=== PATIENT | female | born 1985 | race Caucasian/White ===

== ENCOUNTER 2016-07-12 17:01 | Emergency (ER) | payer BC, OTHER ==
[~2016-07-12] VITALS: Ht 149.9 cm; Wt 58.0 kg
[~2016-07-12 17:01] MED LIST: NO HOME MEDS
[2016-07-12 17:53] LABS: BASOPHILS % (AUTO) 0 % (0-2); EOSINOPHILS % (AUTO) 0 % (0-4); LYMPHOCYTES # (AUTO) 1.8 X10^3; MEAN CORPUSCULAR HEMOGLOBIN 27.7 PG (26.0-34.0); MEAN CORPUSCULAR HGB CONC 33.5 g/dL (31.0-37.0); MEAN CORPUSCULAR VOLUME 83 FL (80-100); MONOCYTES # (AUTO) 0.7 X10^3; MONOCYTES % (AUTO) 8 % (3-11); NEUTROPHILS # (AUTO) 5.7 X10^3; NEUTROPHILS % (AUTO) 69 % (51-67); PLATELET COUNT 246 10^3uL (150-450); WHITE BLOOD COUNT 8.25 10^3uL (4.0-11.0)
[2016-07-12 17:54] LABS: BILIRUBIN,URINE Negative (Negative); COLOR,URINE Yellow; GLUCOSE, URINE (UA) Negative (Negative); LEUKOCYTE ESTERASE ,URINE Negative (Negative); UROBILINOGEN,URINE 0.2 mg/dL (0.2-1.0)
[2016-07-12 17:55] LABS: CLARITY,URINE Slightly Cloudy
[2016-07-12 18:04] LABS: ALBUMIN 4.2 g/dL (3.4-5.0); ANION GAP 13.3 MEQ/L (3-15); CALCULATED IONIZED CALCIUM 3.9 mg/dL (3.8-4.6)
[2016-07-12 18:21] LABS: RBC,URINE 0-2 /HPF; URINE CENTRIFUGED VOLUME 12 mL
--- NOTE | 2016-07-12 19:00 | NUR ---
Report given to Veronica RN - care relinquished
[2016-07-12] MEDS ORDERED: ED- HYDROcodone/ACETAMINOPHEN 5MG/325MG (NORCO) 6 TABLETS/BTL PO ONE (19:55)
[2016-07-12 20:14] VITALS: BP 132/78
--- NOTE | 2016-07-12 22:07 | Diagnostic Imaging Report ---
PROCEDURE: CT abdomen and pelvis without contrast. TECHNIQUE: Multiple contiguous axial images were obtained through the abdomen and pelvis without the use of intravenous contrast. INDICATION: 30-year-old female presents to the ER with hematuria, left flank pain. COMPARISONS: None. FINDINGS: Lung bases are clear. Cardiac contour is normal. Liver shows uniform attenuation. There is no intraparenchymal mass or ductal dilatation. Gallbladder shows no evidence of radiopaque stones, sludge, wall thickening or pericholecystic fluid. Spleen and GE junction are normal. Stomach and duodenal sweep are unremarkable. Pancreas shows sharp margins. Adrenals are normal. Kidneys appear normal in size, position, and contour. There is no evidence of hydronephrosis. Both ureters are seen intermittently through their course with no evidence of hydroureter or ureteral calculus. The partially filled bladder is unremarkable. The nonopacified loops of small bowel are normal. The appendix is normal. Large bowel contains fecal material and gas. The uterus and adnexa are unremarkable. There is an incidental accessory splenule. Bone windows show no overall gross abnormalities. IMPRESSION: Essentially unremarkable nonenhanced CT of the abdomen and pelvis. There is no definite evidence of cholecystitis, appendicitis or obstructive uropathy. No areas of peritoneal inflammation seen. Additional nonemergent findings as described above. Dictated by: Dictated on workstation # [id number]
[2016-09-29] MEDS ORDERED: PRED20TA PO (16:01)
== END 2016-07-12 20:11 | disposition home or self-care (01) ==
LOC: ED 17:05
DX: K63.89 Other specified diseases of intestine (principal); N28.82 Megaloureter; F17.210 Nicotine dependence, cigarettes, uncomplicated
CPT/HCPCS: 36415; 74176; 80053; 81003; 81015; 81025; 83690; 85025; 86140; 99282; 99283

== ENCOUNTER → 2016-09-29 | Outpatient (CLI) | payer BC, OTHER ==
[2016-09-29 16:13] VITALS: BP 129/85
== END ==
LOC: MHUC 15:42
PROVIDERS: ATTEND Physician Assistant
DX: J00 Acute nasopharyngitis [common cold] (principal)
CPT/HCPCS: 99213